=== PATIENT | female | born 1975 | race Caucasian/White ===

== ENCOUNTER 2018-11-19 09:25 | Emergency (ER) | payer BC, OTHER ==
[~2018-11-19] VITALS: Ht 165.1 cm; Wt 58.6 kg
[~2018-11-19 09:25] MED LIST: IBUP-1542 PO; IBUP-727; NEOM3.5O10; TRAM100T33
[2018-11-19 09:29] VITALS: Ht 165.1 cm; Wt 58.6 kg
[2018-11-19] MEDS ORDERED: ONDANSETRON 4 MG INJ IV STA (10:05)
[2018-11-19] MEDS ORDERED: SOD CHLORIDE 0.9% 1,000 ML IV STA (10:05)
[2018-11-19] MEDS ORDERED: KETOROLAC 30 MG INJ IV STA (10:05)
[2018-11-19] MEDS ORDERED: CEPH-443 PO (12:49)
[2018-11-19] MEDS ORDERED: ONDA4TAB14 PO (12:49)
[2018-11-19] MEDS ORDERED: NAPR-985 PO (12:52)
[2018-11-19 13:14] VITALS: BP 109/64; PULSE 67; RESP 16
--- NOTE | 2018-11-19 18:13 | ERD ---
ER Documentation Chief Complaint Chief Complaint pt bib family with c/o cough, diarrhea, aches and pains HPI 42-year-old female patient with no significant past medical history presents to ED complaining of cough, diarrhea, body aches. Patient denies any sick contacts. Reports that she has had 3 episodes of nonbilious nonbloody vomiting. Denies any chest pain, shortness of breath, diarrhea, constipation, urine, urgency, frequency. ROS All systems reviewed and are negative except as per history of present illness. Medications Home Meds Active Scripts Naproxen* (Naprosyn*) 500 Mg Tablet, 500 MG PO BID PRN for PAIN AND/OR INFLAMMATION, #30 TAB Prov:JUNIOR MOSER PA-C 11/19/18 Cephalexin* (Keflex*) 500 Mg Capsule, 500 MG PO QID for 7 Days, CAP Prov:JUNIOR MOSER PA-C 11/19/18 Ondansetron (Ondansetron Odt) 4 Mg Tab.rapdis, 4 MG PO Q6H PRN for NAUSEA AND/OR VOMITING, #10 TAB Prov:JUNIOR MOSER PA-C 11/19/18 Ibuprofen* (Motrin*) 600 Mg Tab, 600 MG PO Q6, #30 TAB Prov:JEAN CLAUDE LUCAS MD 07/02/16 Reported Medications Tramadol Hcl* (Tramadol* ER) 100 Mg Tab.er.24h 04/12/13 Neomy Sulf/Bacitra/Polymyxin B (CEFERINO-POLYCIN EYE OINTMENT) 3.5 Gm Oint...g. 04/12/13 Ibuprofen (Motrin) 600 Mg Tablet, PRN 02/06/12 Allergies Allergies: Coded Allergies: No Known Allergy (Verified , 11/19/18) PMhx/Soc History of Surgery: Yes (Eye, R shoulder surgery.) Anesthesia Reaction: No Hx Neurological Disorder: No Hx Respiratory Disorders: No Hx Cardiac Disorders: No Hx Psychiatric Problems: No Hx Miscellaneous Medical Probl: No Hx Alcohol Use: Yes (social) Hx Substance Use: No Hx Tobacco Use: No Smoking Status: Never smoker FmHx Family History: No diabetes, No coronary disease Physical Exam Vitals Physical Exam Const: [id number], well-nourished. In no acute distress. Head: Atraumatic, normocephalic Eyes: Normal Conjunctiva without injection. No purulent discharge. PERRL. EOMI ENT: Normal external ear. Ear canal without erythema. Tympanic membrane pearly gregg without effusion or bulging. Nasal canal clear with normal turbinates. Moist oropharynx without tonsillar exudates. Non-erythematous pharynx. Uvula midline. No drooling. No trismus. Neck: Full range of motion. No meningismus. No cervical lymphadenopathy. Resp: Clear to auscultation bilaterally. No wheezing, rhonchi, rales, or crackl es. No accessory muscle use. No retractions. Cardio: Regular rate and rhythm. No murmurs, rubs or gallops. Abd: Soft, non tender, non distended. Normal bowel sounds. No palpable masses. No rebound tenderness. No guarding. Skin: No petechiae or rashes Back: No midline tenderness. No CVA tenderness. Ext: No cyanosis, or edema. Neur: Awake and alert. Psych: Normal Mood and Affect Results 24 hrs Laboratory Tests Test 11/19/18 10:21 11/19/18 10:23 11/19/18 11:53 POC Beta HCG, Qualitative NEGATIVE White Blood Count 10.9 10^3/ul Red Blood Count 4.82 10^6/ul Hemoglobin 14.1 g/dl Hematocrit 43.2 % Mean Corpuscular Volume 89.6 fl Mean Corpuscular Hemoglobin 29.3 pg Mean Corpuscular 32.6 g/dl Hemoglobin Concent Red Cell Distribution Width 12.2 % Platelet Count 265 10^3/UL Mean Platelet Volume 10.5 fl Immature Granulocytes % 0.400 % Neutrophils % 95.0 % Lymphocytes % 2.0 % Monocytes % 2.2 % Eosinophils % 0.3 % Basophils % 0.1 % Nucleated Red Blood Cells % 0.0 /100WBC Immature Granulocytes # 0.040 10^3/ul Neutrophils # 10.4 10^3/ul Lymphocytes # 0.2 10^3/ul Monocytes # 0.2 10^3/ul Eosinophils # 0.0 10^3/ul Basophils # 0.0 10^3/ul Nucleated Red Blood Cells # 0.0 10^3/ul Sodium Level 143 mmol/L Potassium Level 3.8 mmol/L Chloride Level 106 mmol/L Carbon Dioxide Level 28 mmol/L Anion Gap 9 Blood Urea Nitrogen 16 mg/dl Creatinine 0.63 mg/dl Est Glomerular Filtrat > 60 mL/min Rate mL/min Glucose Level 108 mg/dl Calcium Level 10.0 mg/dl Total Bilirubin 0.5 mg/dl Direct Bilirubin 0.00 mg/dl Indirect Bilirubin 0.5 mg/dl Aspartate Amino 23 IU/L Transf (AST/SGOT) Alanine 33 IU/L Aminotransferase (ALT/SGPT) Alkaline Phosphatase 72 IU/L Total Protein 7.3 g/dl Albumin 4.2 g/dl Globulin 3.10 g/dl Albumin/Globulin Ratio 1.35 Lipase 72 U/L Urine Color RED Urine Clarity SLIGHTLY CLOUDY Urine pH 5.0 Urine Specific [place] 1.030 Urine Ketones 1+ mg/dL Urine Nitrite NEGATIVE mg/dL Urine Bilirubin NEGATIVE mg/dL Urine Urobilinogen NEGATIVE mg/dL Urine Leukocyte Esterase 1+ Mason/ul Urine Microscopic RBC 164 /HPF Urine Microscopic WBC 18 /HPF Urine Squamous Epithelial Cells MODERATE /HPF Urine Calcium Oxalate Crystals FEW /HPF Urine Bacteria FEW /HPF Urine Mucus MANY /HPF Urine Hemoglobin 3+ mg/dL Urine Glucose NEGATIVE mg/dL Urine Total Protein 2+ mg/dl Current Medications Medications Dose Sig/Dahiana Start Time Status Last (Trade) Ordered Route PRN Stop Time Admin Dose Reason Admin Sodium 1,000 ml @ Q1H STAT 11/19/18 DC 11/19/18 Chloride 1,000 mls/hr IV 10:05 10:23 11/19/18 11:04 Ondansetron 4 mg ONCE STAT 11/19/18 DC 11/19/18 HCl (Zofran IV 10:05 10:23 Inj) 11/19/18 10:06 Ketorolac 30 mg ONCE STAT 11/19/18 DC 11/19/18 Tromethamine IV 10:05 10:27 (Toradol) 11/19/18 10:06 Procedures/MDM 42-year-old female patient with no significant past medical history presents to ED complaining of cough, diarrhea, body aches. Patient is afebrile and nontoxic-appearing. He was given 1 L normal saline, 4 mg IV Zofran with improvement of her symptoms. Patient was ordered a CBC, CMP, lipase, UA, urine . CBC: No leukocytosis. No e/o of systemic infection. No e/o anemia. CMP: No e/o severe acidosis, alkalosis, renal failure, diabetic ketoacidosis, liver disease Lipase within normal limits. Urine: 1+ leukocyte esterase, no nitrites, no hematuria. She will be treated for urinary tract infection. Low suspicion for ectopic , ovarian torsion, gastritis, GERD, peptic ulcer disease, cholecystitis, choledocholithiasis, cholangitis, pancreatitis, appendicitis, bowel obstruction, ileus, volvulus, nephrolithiasis, pyelonephritis, hepatitis, perforated viscus, diverticulitis, strangula doc/incarcerated hernia, DKA, acute abdomen, mesenteric ischemia or other emergent conditions. Discharge medications:Naproxen, Keflex, Zofran Follow up with primary care physician in 1-2 days. Instructed patient to return to the ED sooner for any worsening symptoms. Patient's questions were answered. Patient is hemodynamically stable. Patient understood and agreed with discharge plan. Patient discharged stable. Disclaimer: Inadvertent spelling and grammatical errors are likely due to EHR/dictation software use and do not reflect on the overall quality of patient care. Also, please note that the electronic time recorded on this note does not necessarily reflect the actual time of the patient encounter. Departure Diagnosis: Primary Impression: Diarrhea Diarrhea type: unspecified type Qualified Codes: R19.7 - Diarrhea, unspecified Additional Impressions: Urinary tract infection Urinary tract infection type: site unspecified Hematuria presence: without hematuria Qualified Codes: N39.0 - Urinary tract infection, site not specified Body aches Condition: Stable Patient Instructions: Urinary Tract Infections in Women, Self-Care for Vomiting and Diarrhea, Viral Syndrome (Adult) Referrals: [facility] YOU HAVE RECEIVED A MEDICAL SCREENING EXAM AND THE RESULTS INDICATE THAT YOU DO NOT HAVE A CONDITION THAT REQUIRES URGENT TREATMENT IN THE EMERGENCY DEPARTMENT. FURTHER EVALUATION AND TREATMENT OF YOUR CONDITION CAN WAIT UNTIL YOU ARE SEEN IN YOUR DOCTORS OFFICE WITHIN THE NEXT 1-2 DAYS. IT IS YOUR RESPONSIBILITY TO MAKE AN APPOINTMENT FOR FOLOW-UP CARE. IF YOU HAVE A PRIMARY DOCTOR --you should call your primary doctor and schedule an appointment IF YOU DO NOT HAVE A PRIMARY DOCTOR YOU CAN CALL OUR PHYSICIAN REFERRAL HOTLINE AT IF YOU CAN NOT AFFORD TO SEE A PHYSICIAN YOU CAN CHOSE FROM THE FOLLOWING [facility] [address] [facility]. [facility] [address] [facility] [address] [facility]. [facility] [address] [facility]. [facility] [address] [facility]. [facility]. [address] [facility]. [facility] YOU HAVE RECEIVED A MEDICAL SCREENING EXAM AND THE RESULTS INDICATE THAT YOU DO NOT HAVE A CONDITION THAT REQUIRES URGENT TREATMENT IN THE EMERGENCY DEPARTMENT. FURTHER EVALUATION AND TREATMENT OF YOUR CONDITION CAN WAIT UNTIL YOU ARE SEEN IN YOUR DOCTORS OFFICE WITHIN THE NEXT 1-2 DAYS. IT IS YOUR RESPONSIBILITY TO MAKE AN APPOINTMENT FOR FOLOW-UP CARE. IF YOU HAVE A PRIMARY DOCTOR --you should call your primary doctor and schedule and appointment IF YOU DO NOT HAVE A PRIMARY DOCTOR YOU CAN CALL OUR PHYSICIAN REFERRAL HOTLINE AT . IF YOU CAN NOT AFFORD TO SEE A PHYSICIAN YOU CAN CHOSE FROM THE FOLLOWING [facility] INSTITUTIONS: [facility] [address] [place] [address] [facility] [address] [place] [address] [facility] [address] [place] [address] [facility] URGENT C[facility]/SPECIALTIES Additional Instructions: Call your primary care doctor TOMORROW for an appointment during the next 2-3 days.See the doctor sooner or return here if your condition worsens before your appointment time. JUNIOR MOSER PA-C Nov 19, 2018 18:13
== END 2018-11-19 13:15 | disposition home or self-care (01) ==
LOC: FTE 09:25
DX: R19.7 Diarrhea, unspecified (principal); N39.0 Urinary tract infection, site not specified; R52 Pain, unspecified
CPT/HCPCS: 36415; 80053; 81001; 81025; 83690; 85025; 96374; 96375; J1885; J2405; J7030; Z7502